=== PATIENT | male | born 1950 | race Caucasian/White ===

== ENCOUNTER → 2018-03-16 | Outpatient (CLI) | payer OTHER ==
[~2018-03-16] MED LIST: ASCORBIC ACID500 M3 PO; ASPIRIN81 M2 PO; DAILY MULTIPLE1 EACH PO; FLAXSEED OIL PO; HYDROCODON-ACE1 EAC7 PO; IRBESARTAN300 MG PO; MEVACOR40 MG PO; PENTOXIFYLLINE400 MG PO; RANITIDINE HCL150 MG PO; RED YEAST RICE600 MG PO; TOPROL XL100 MG PO; ZOLOFT100 MG PO
== END | disposition home or self-care (01) ==
LOC: CDC 09:34
DX: Z01.810 Encounter for preprocedural cardiovascular examination (principal); R00.1 Bradycardia, unspecified
CPT/HCPCS: 93000